=== PATIENT | female | born 1980 | race Caucasian/White ===

== ENCOUNTER → 2020-12-07 | Outpatient (CLI) | payer OTHER ==
[~2020-12-07] MED LIST: BENTYL 20MG TAB20 MG PO; NAPROSYN500 MG PO; NORCO 5-325 TA1 EACH PO; REGLAN10 MG PO; ZITHROMAX250 MG PO
== END ==
LOC: KOH-I 14:21
DX: R05.9 Cough, unspecified (principal)
CPT/HCPCS: 71046; 72040; 72070; 72100

== ENCOUNTER → 2021-01-01 | Outpatient (CLI) | payer OTHER ==
[~2021-01-01] MED LIST changes: +CELEXA40 MG PO; +NEURONTIN600 MG PO; +SUBOXONE 8 MG-1 EACH SL; +VISTARIL 50 MG50 MG PO; +ZANAFLEX PO
== END ==
LOC: LAB 10:09
DX: O20.0 Threatened abortion (principal)
CPT/HCPCS: 36415; 84702

== ENCOUNTER 2021-01-09 06:40 | Day surgery (SDC) | payer OTHER ==
[~2021-01-09 06:40] MED LIST changes: -CELEXA40 MG PO; -NEURONTIN600 MG PO; -SUBOXONE 8 MG-1 EACH SL; -VISTARIL 50 MG50 MG PO; -ZANAFLEX PO
[2021-01-09] MEDS ORDERED: NEURONTIN600 MG PO (08:28)
[2021-01-09] MEDS ORDERED: SUBOXONE 8 MG-1 EACH SL (08:28)
[2021-01-09] MEDS ORDERED: ZANAFLEX PO (08:29)
[2021-01-09] MEDS ORDERED: CELEXA40 MG PO (08:29)
[2021-01-09] MEDS ORDERED: VISTARIL 50 MG50 MG PO (08:29)
== END 2021-01-09 13:30 | disposition left against medical advice (07) ==
LOC: OR 06:40 → OB 12:52 → OR 13:30
DX: O02.1 Missed abortion (principal); F11.20 Opioid dependence, uncomplicated; B19.20 Unspecified viral hepatitis C without hepatic coma; R58 Hemorrhage, not elsewhere classified; J45.909 Unspecified asthma, uncomplicated; I10 Essential (primary) hypertension; F17.210 Nicotine dependence, cigarettes, uncomplicated; E66.01 Morbid (severe) obesity due to excess calories; Z68.44 Body mass index [BMI] 60.0-69.9, adult; Z20.822 Contact with and (suspected) exposure to COVID-19
CPT/HCPCS: J1100; J2001; J2210; J2250; J2405; J2704; J2795; J3010; J7030; J7120; U0002